=== PATIENT | female | born 1960 | race Caucasian/White ===

== ENCOUNTER 2019-05-30 15:29 | Emergency (ER) | payer MEDICAID, OTHER ==
[~2019-05-30] VITALS: Ht 175.3 cm; Wt 114.1 kg
[2019-05-30 15:46] VITALS: BP 117/62
[2019-05-30] MEDS ORDERED: traMADol 50MG tablet PO ONE (17:05)
[2019-05-30] MEDS ORDERED: TRAM50TA2 PO (17:17)
== END 2019-05-30 18:13 | disposition home or self-care (01) ==
LOC: ER 15:30
DX: M25.561 Pain in right knee (principal); M25.571 Pain in right ankle and joints of right foot; Z88.5 Allergy status to narcotic agent; Z88.6 Allergy status to analgesic agent; Z88.8 Allergy status to other drugs, medicaments and biological substances; Z79.899 Other long term (current) drug therapy; W18.39XA Other fall on same level, initial encounter; Y93.89 Activity, other specified; Y92.89 Other specified places as the place of occurrence of the external cause; Y99.8 Other external cause status
CPT/HCPCS: 73564; 73610; 99284